=== PATIENT | male | born 2000 | race Asian ===

== ENCOUNTER 2019-05-29 20:18 | Emergency (ER) | payer OTHER ==
[~2019-05-29] VITALS: Ht 172.7 cm; Wt 70.4 kg
[2019-05-29] MEDS ORDERED: ONDANSETRON 4 MG ORAL DISINTEGRATING TAB (Q0162 PER 1MG) PO ONE (20:30)
[2019-05-29] MEDS ORDERED: ACETAMINOPHEN TAB 650MG DOSE (2X325MG) PO ONE (20:30)
[2019-05-29 21:03] LABS: INFLUENZA A AMPLIFICATION NEGATIVE (NEGATIVE); INFLUENZA B AMPLIFICATION NEGATIVE (NEGATIVE)
[2019-05-29 21:56] VITALS: BP 115/68
[2019-05-29] MEDS ORDERED: ZOFR4TAB16 PO (22:17)
== END 2019-05-29 22:24 | disposition home or self-care (01) ==
LOC: M ED 20:18
DX: K52.9 Noninfective gastroenteritis and colitis, unspecified (principal)
CPT/HCPCS: 87502; 99283; Q0162